=== PATIENT | female | born 1955 | race Caucasian/White ===

== ENCOUNTER → 2016-11-11 | Outpatient (CLI) | payer BC ==
--- NOTE | 2016-11-14 08:52 | MM ---
Reason for exam: screening (asymptomatic). Last mammogram was performed 2 years and 7 months ago. History: Patient is postmenopausal. Family history of breast cancer in aunt. Took estrogen for 2 months. Took unspecified hormones for 1 year 6 months beginning at age 49. Physical Findings: A clinical breast exam by your physician is recommended on an annual basis and results should be correlated with mammographic findings. MG Screening Mammo w CAD Bilateral CC and MLO view(s) were taken. Prior study comparison: April 10, 2014, bilateral MG screening mammo w CAD. April 01, 2013, bilateral digital screening mammo w/CAD. July 05, 2011, bilateral digital screening mammo w/CAD. There are scattered fibroglandular densities. No suspicious abnormality. No significant changes when compared with prior studies. ASSESSMENT: Benign, BI-RAD 2 RECOMMENDATION: Routine screening mammogram of both breasts in 1 year.
== END | disposition home or self-care (01) ==
LOC: RADMAMWWP 10:23
PROVIDERS: ATTEND Obstetrics & Gynecology
DX: Z12.31 Encounter for screening mammogram for malignant neoplasm of breast (principal); Z80.3 Family history of malignant neoplasm of breast

== ENCOUNTER → 2017-04-27 | Outpatient (CLI) | payer BC ==
--- NOTE | 2017-04-27 08:00 | MR ---
EXAMINATION TYPE: MR knee RT wo con DATE OF EXAM: 04/27/2017 COMPARISON: Outside right knee x-ray March 15, 2017. HISTORY: Right knee pain per order. History of prior knee surgery with recurrent inner knee pain per patient. TECHNIQUE: Multiplanar, multisequence images of the knee is performed without IV contrast. FINDINGS: MEDIAL MENISCUS: Anterior horn is intact without tear. Vague irregular increased signal posterior hor n of medial meniscus is present, some extension to articular surface inferiorly is felt present. Ther e is more prominent vertical tear seen best coronal image 20 and sagittal image 11. LATERAL MENISCUS: Horizontal increased signal posterior horn lateral meniscus is seen. There is more irregular increased signal anterior horn that appears to extend to articular surface sagittal image 2 2. CRUCIATE LIGAMENTS: The anterior and posterior cruciate ligaments are intact and unremarkable. COLLATERAL LIGAMENTS: The medial collateral ligament and lateral collateral ligament complex are inta ct. Mild fluid signal surrounds medial collateral ligament. EXTENSOR MECHANISM: Visualized quadriceps and patellar tendons are intact. EFFUSION: There is small suprapatellar joint effusion. POPLITEAL CYST: No popliteal/perry cyst. TRICOMPARTMENT SPACES: Advanced joint space loss patellofemoral compartment with moderate to severe s purring is seen. There is mild to moderate spurring lateral and medial tibiofemoral compartments. Jai e joint space narrowing tibial tibiofemoral compartment is present. CARTILAGE: Full-thickness chondromalacia patella is seen. BONE MARROW SIGNAL: Heterogeneous T2 foci posterior patellar pole are noted along the lateral facet. There is overall heterogeneity consistent with red marrow reconversion. There is additional subchondr al cystic change along posterior medial tibial plateau. OTHER: No additional significant abnormality is appreciated. IMPRESSION: 1. Full-thickness tear posterior horn of medial meniscus with prominent vertical component noted. 2. Suspect full-thickness tear anterior horn of lateral meniscus. 3. Intrasubstance tear posterior horn of lateral meniscus. 4. Mild MCL sprain. 5. Advanced patellofemoral compartment degenerative change with full-thickness chondromalacia patella identified. 5. Mild to moderate degenerative changes lateral and more prominent medial tibiofemoral compartments as detailed above.
== END | disposition home or self-care (01) ==
LOC: RADMRIMAIN 07:17
PROVIDERS: ATTEND Orthopaedic Surgery
DX: S83.241A Other tear of medial meniscus, current injury, right knee, initial encounter (principal); S83.281A Other tear of lateral meniscus, current injury, right knee, initial encounter; S83.411A Sprain of medial collateral ligament of right knee, initial encounter; M22.41 Chondromalacia patellae, right knee

== ENCOUNTER 2017-07-05 07:09 | Day surgery (SDC) | payer BC ==
[2017-06-29 15:04] VITALS: BMI 35.1
--- NOTE | 2017-07-04 13:26 | HP ---
HISTORY AND PHYSICAL Surgery is scheduled for 07/05/2017. Ewa Lang is a 62-year-old patient seen with progressive right knee pain. After treatment options were discussed, she elected to proceed with a right knee arthroscopy. Consent regarding procedure was obtained. Medical clearance was provided. PAST MEDICAL HISTORY: Hypothyroidism, hypertension, hyperlipidemia, npf-ehoiyng-lifmdfstc diabetes. PAST SURGICAL HISTORY: Shoulder arthroscopy, section. DAILY MEDICATIONS: 1. Hydrochlorothiazide. 2. Levothyroxine. 3. Losartan. 4. Metformin. 5. Omeprazole. 6. Atorvastatin. 7. Tylenol with codeine. ALLERGIES: PENICILLIN, MORPHINE. SOCIAL HISTORY: Patient denies current tobacco use. PHYSICAL EXAMINATION: Physical evaluation of the right knee: Range of motion is 0 to 120 degrees. Tenderness along the medial lateral joint lines. Positive medial Randy's. Positive lateral Randy's. Ligaments stable. Hip rotation without pain. Distal neurovascular exam is intact. Radiographs of the right knee reveal osteoarthritic changes. MRI of the right knee revealed medial lateral meniscal tears. IMPRESSION: Internal derangement right knee with medial and lateral meniscal tears. PLAN: Right knee arthroscopy with partial meniscectomy and debridement. MMODL / IJN: [id number] /
[~2017-07-05 07:09] MED LIST: DEXAMETHASONE SOD PHOSPHATE 10 MG/ML 1 ML VIAL IV ONE; LACTATED RINGERS 1,000 ML IV SCH; LIDOCAINE 1% 20 ML VIAL (10MG/ML) FOR IV START INTRADERMA PRN; ONDANSETRON 4 MG/2 ML VIAL IVP ONE; SCOPOLAMINE 1.5MG/72HR PATCH TRANSDERM ONE; ceFAZolin IN SWFI 2 GM/20 ML SYRINGE IVP ONE; fentaNYL (PF) 50 MCG/ML 2 ML AMP IV PRN
[2017-07-05 08:01] LABS: Glucose,Whole Blood 164 mg/dL (75-99)
[2017-07-05] MEDS ORDERED: PROPOFOL 10 MG/ML 20 ML VIAL IV ONE (08:29)
[2017-07-05] MEDS ORDERED: LIDOCAINE 1% INJ 10MG/ML (20 ML MDV) ONE (08:29)
[2017-07-05] MEDS ORDERED: DEXAMETHASONE SOD PHOS (MDV) 100 MG/10 ML VIAL ONE (08:29)
[2017-07-05] MEDS ORDERED: MIDAZOLAM 2 MG/2 ML VIAL ONE (08:29)
[2017-07-05] MEDS ORDERED: SUCCINYLCHOLINE CHLORIDE VIAL 200 MG/10 ML VIAL IV ONE (08:29)
[2017-07-05] MEDS ORDERED: fentaNYL (PF) 50 MCG/ML 2 ML AMP ONE (08:29)
[2017-07-05] MEDS ORDERED: BUPIVACAINE (PF) 0.25% 30 ML VIAL INTRAARTIC ONE ×2 (08:33→09:12)
[2017-07-05 09:30] VITALS: TEMP 98.3
--- NOTE | 2017-07-05 09:36 | P.OP ---
Date of Procedure: 07/05/17 Preoperative Diagnosis: Internal derangement right knee Postoperative Diagnosis: 1. Tear medial and lateral meniscus right knee 2. Grade 2/3 chondromalacia medial femoral condyle right knee 3. 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 Reactive synovitis medial and suprapatellar compartments right knee Procedure(s) Performed: 1. Arthroscopic partial medial and lateral meniscectomy right knee 2. Arthroscopic chondroplasty medial femoral condyle right knee 3. Arthroscopic chondroplasty patella right knee 4. Arthroscopic partial synovectomy medial and suprapatellar compartments right knee Anesthesia: DEANAA, local Surgeon: Nathan Vazquez Estimated Blood Loss (ml): 9 Pathology: none sent Condition: stable Disposition: PACU Indications for Procedure: 62-year-old patient seen with progressive right knee pain. After treatment options were discussed, she elected to proceed with arthroscopy. Operative Findings: See description of procedure Description of Procedure: Patient was taken to the operative suite. Patient underwent a general anesthetic by the department of anesthesia. Patient was given preoperative antibiotics. The right lower extremity was placed in a well-padded arthroscopic leg robison. The right leg was prepped and draped in the normal sterile orthopedic fashion. A lateral parapatellar and suprapatellar incision was made. Trochars were inserted. Arthroscopy was initiated. Suprapatellar pouch revealed diffuse thick reactive synovitis. The patellofemoral joint appeared to articulate congruently. There as grade 2/3 chondromalacia of the patella and femoral sulcus with some diffuse osteochondral tears present. The scope was guided into the medial gutter. No loose bodies or plica were identified. The scope was then guided into the medial compartment. A medial parapatellar incision was made. Trocar inserted followed by probe. There was a complex tear involving the posterior horn of the medial meniscus. There were grade 2/3 chondromalacia changes of the medial femoral condyle with osteochondral tears present. There was thick reactive synovitis anteriorly. I performed a partial medial meniscectomy down to stable tissue. I performed a chondroplasty of the medial femoral condyle down to stable tissue. I performed a partial synovectomy. The residual meniscus and osteochondral surface were found to be stable. Scope and probe were then guided into the intercondylar notch. Cruciates were identified, probed and found to be stable. The scope and probe were then guided into lateral compartment. There were radial tears involving the anterior and posterior horn lateral meniscus. There were some grade 1 chondromalacia changes lateral compartment with no osteochondral tears. There was no synovitis present. I performed a partial lateral meniscectomy down to stable tissue. The residual meniscus was stable. The scope was in guided back into the suprapatellar compartment. I introduced a motorized shaver into the super patellar compartment. I debrided some piecemeal fragments of meniscus I encountered. I performed a chondroplasty of the patella and femoral sulcus down to stable tissue. I performed a partial synovectomy. Shaver was removed. I took one more look on the entire knee, no residual debris. Instruments were now removed from the joint. The joint was infiltrated with .25% Marcaine. Steri-Strips were applied to the portal sites. Sterile dressings were applied. The patient was placed into a MATT hose. No tourniquet was utilized. The patient was awakened, transferred to a bed and taken to recovery stable satisfactory condition.
[2017-07-05 09:53] VITALS: RESP 16
[2017-07-05] MEDS ORDERED: KETOROLAC 30 MG/ML 1 ML VIAL IVP ONE (09:59)
[2017-07-05 10:08] LABS: Glucose,Whole Blood 195 mg/dL (75-99)
[2017-07-05] MEDS ORDERED: HYDROcodone/APAP 5-325MG 1 EACH TAB PO ONE (10:50)
[2017-07-05 11:30] VITALS: BP 135/88; PULSE 88
== END 2017-07-05 11:53 | disposition home or self-care (01) ==
LOC: OR 07:09
PROVIDERS: ATTEND Orthopaedic Surgery
DX: S83.241A Other tear of medial meniscus, current injury, right knee, initial encounter (principal); S83.281A Other tear of lateral meniscus, current injury, right knee, initial encounter; X58.XXXA Exposure to other specified factors, initial encounter; M22.41 Chondromalacia patellae, right knee; M65.861 Other synovitis and tenosynovitis, right lower leg; E03.9 Hypothyroidism, unspecified; K21.9 Gastro-esophageal reflux disease without esophagitis; I10 Essential (primary) hypertension; E78.5 Hyperlipidemia, unspecified; E11.9 Type 2 diabetes mellitus without complications; Z79.84 Long term (current) use of oral hypoglycemic drugs; Z79.890 Hormone replacement therapy; Z79.891 Long term (current) use of opiate analgesic; Z79.899 Other long term (current) drug therapy; Z88.5 Allergy status to narcotic agent; Z88.0 Allergy status to penicillin
CPT/HCPCS: 29880; J2250; J0330; J1100 ×2; J2405; J2001; J3010; J1885; J2704; J0690

== ENCOUNTER → 2018-04-19 | Outpatient (CLI) | payer BC ==
--- NOTE | 2018-04-20 10:47 | MM ---
Reason for exam: screening (asymptomatic). Last mammogram was performed 1 year and 5 months ago. History: Patient is postmenopausal. Family history of breast cancer in aunt. Took estrogen for 2 months. Took unspecified hormones for 1 year 6 months beginning at age 49. Physical Findings: A clinical breast exam by your physician is recommended on an annual basis and results should be correlated with mammographic findings. MG Screening Mammo w CAD Bilateral CC and MLO view(s) were taken. Prior study comparison: November 11, 2016, bilateral MG screening mammo w CAD. April 10, 2014, bilateral MG screening mammo w CAD. Finding #1: There is a 5 mm obscured round mass in the anterior position of the right breast. Finding #2: There are typically benign round calcifications in both breasts. New finding since November 11, 2016 and April 10, 2014. ASSESSMENT: Incomplete: need additional imaging evaluation, BI-RAD 0 RECOMMENDATION: Special view mammogram of the right breast. If lesion persists on supplemental views, image directed ultrasound is recommended. [facility] will attempt to contact patient to return for supplemental views and ultrasound if indicated.
== END | disposition home or self-care (01) ==
LOC: RADMAMWWP 14:59
PROVIDERS: ATTEND Obstetrics & Gynecology
DX: Z12.31 Encounter for screening mammogram for malignant neoplasm of breast (principal)
CPT/HCPCS: 77067

== ENCOUNTER → 2018-05-08 | Outpatient (CLI) | payer BC ==
--- NOTE | 2018-05-09 08:05 | MM ---
Reason for exam: additional evaluation requested from abnormal screening. Last mammogram was performed 1 month ago. History: Patient is postmenopausal. Family history of breast cancer in aunt. Took estrogen for 2 months. Took unspecified hormones for 1 year 6 months beginning at age 49. Physical Findings: Nurse did not find any significant physical abnormalities on exam. MG Work Up Mamm w CAD RT CC and MLO view(s) were taken of the right breast. Prior study comparison: April 19, 2018, bilateral MG screening mammo w CAD. November 11, 2016, bilateral MG screening mammo w CAD. There are scattered fibroglandular densities. Right upper outer quadrant anterior depth focal asymmetry improves on additional views however precautionary upper outer quadrant ultrasound will be performed. These results were verbally communicated with the patient and result sheet given to the patient on 05/08/18. ASSESSMENT: Incomplete: need additional imaging evaluation, BI-RAD 0 RECOMMENDATION: Ultrasound of the right breast. (upper outer quadrant)
--- NOTE | 2018-05-09 08:07 | USB ---
Reason for exam: additional evaluation requested from abnormal screening. History: Patient is postmenopausal. Family history of breast cancer in aunt. Took estrogen for 2 months. Took unspecified hormones for 1 year 6 months beginning at age 49. US Breast Workup Limited RT Right limited breast ultrasound including focal area of concern, retroareolar and axilla demonstrates a 0.3 x 0.3 x 0.3cm lesion too small to characterize at 10 o'clock, likely cystic. May correspond to the mammographic finding. 6 month follow up mammogram recommended. These results were verbally communicated with the patient and result sheet given to the patient on 05/08/18. ASSESSMENT: Probably benign, BI-RAD 3 RECOMMENDATION: Follow-up diagnostic mammogram of the right breast in 6 months.
== END | disposition home or self-care (01) ==
LOC: RADMAMWWP 14:54
PROVIDERS: ATTEND Obstetrics & Gynecology
DX: R92.8 Other abnormal and inconclusive findings on diagnostic imaging of breast (principal)
CPT/HCPCS: 77065

== ENCOUNTER → 2018-12-06 | Outpatient (CLI) | payer BC ==
--- NOTE | 2018-12-07 09:09 | MM ---
Reason for exam: follow-up at short interval from prior study. Last mammogram was performed 7 months ago. History: Patient is postmenopausal. Family history of breast cancer in aunt. Took estrogen for 2 months. Took unspecified hormones for 1 year 6 months beginning at age 49. Physical Findings: Nurse did not find any significant physical abnormalities on exam. MG Diagnostic Mammo RT w CAD CC and MLO view(s) were taken of the right breast. Prior study comparison: May 08, 2018, right breast MG work up mamm w CAD RT. April 19, 2018, bilateral MG screening mammo w CAD. No change in tiny nodule. No significant new findings when compared with previous films. These results were verbally communicated with the patient and result sheet given to the patient on 12/06/18. ASSESSMENT: Benign, BI-RAD 2 RECOMMENDATION: Follow-up diagnostic mammogram of both breasts in 6 months.
== END | disposition home or self-care (01) ==
LOC: RADMAMWWP 14:45
PROVIDERS: ATTEND Obstetrics & Gynecology
DX: R92.8 Other abnormal and inconclusive findings on diagnostic imaging of breast (principal)
CPT/HCPCS: 77065

== ENCOUNTER → 2020-04-30 | Outpatient (CLI) | payer BC ==
--- NOTE | 2020-05-01 09:30 | MM ---
Reason for exam: additional evaluation requested from prior study. Last mammogram was performed 1 year and 5 months ago. History: Patient is postmenopausal. Family history of breast cancer in aunt. Took estrogen for 2 months. Took unspecified hormones for 1 year 6 months beginning at age 49. Physical Findings: Nurse did not find any significant physical abnormalities on exam. MG Diagnostic Mammo w CAD NELY Bilateral CC and MLO view(s) were taken. Prior study comparison: December 06, 2018, right breast MG diagnostic mammo RT w CAD. May 08, 2018, right breast MG work up mamm w CAD RT. Focal asymmetry left subareolar breast. No significant new findings when compared with previous films. These results were verbally communicated with the patient and result sheet given to the patient on 04/30/20. ASSESSMENT: Benign, BI-RAD 2 RECOMMENDATION: Routine screening mammogram of both breasts in 1 year.
== END | disposition home or self-care (01) ==
LOC: RADMAMWWP 14:14
PROVIDERS: ATTEND Obstetrics & Gynecology
DX: R92.8 Other abnormal and inconclusive findings on diagnostic imaging of breast (principal)
CPT/HCPCS: 77066

== ENCOUNTER → 2020-12-03 | Outpatient (CLI) | payer BC | END | disposition home or self-care (01) | LOC: LABPAT 15:27 | PROVIDERS: ATTEND Orthopaedic Surgery | DX: Z01.812 Encounter for preprocedural laboratory examination (principal); M17.11 Unilateral primary osteoarthritis, right knee; Z22.322 Carrier or suspected carrier of Methicillin resistant Staphylococcus aureus | CPT/HCPCS: 87070 ==

== ENCOUNTER 2020-12-14 05:53 | Day surgery (SDC) | payer BC ==
[2020-12-09 12:31] VITALS: BMI 32.9
--- NOTE | 2020-12-13 10:52 | HP ---
HISTORY AND PHYSICAL REASON FOR ADMISSION: Surgery scheduled for 12/14/2020. HISTORY OF PRESENT ILLNESS: Ewa Lang is a 65-year-old patient seen with symptomatic right knee osteoarthritis. We discussed options for treatment. She elected to proceed with right total knee arthroplasty. Consent regarding the procedure was obtained. Medical clearance was provided by Dr. Vidal Medrano. PAST MEDICAL HISTORY: Hypertension, gkz-umvriqm-bjgjzejxu diabetes, hypothyroidism. PAST SURGICAL HISTORY: Shoulder surgery, section. MEDICATIONS: Hydrochlorothiazide, levothyroxine, losartan, metformin, omeprazole. ALLERGIES: PENICILLIN, MORPHINE. SOCIAL HISTORY: She denies tobacco use. PHYSICAL EVALUATION OF THE RIGHT KNEE: Range of motion is -2/3-90. Mild effusion. Tenderness medial joint line. Crepitus along the medial patellofemoral compartments with range of motion. Pain with patellofemoral compression. Ligaments stable. Hip rotation without pain. Distal neurovascular exam intact. RADIOGRAPHS: Right knee radiographs reveal severe osteoarthritic changes. IMPRESSION: 1. Right knee osteoarthritis. 2. Hypertension. 3. Hyperlipidemia. 4. Yea-bgdpmuo-cgbefoxnp diabetes. PLAN: Right total knee arthroplasty. Surgery 12/14/2020. MMODL / IJN: [id number] /
[~2020-12-14 05:53] MED LIST changes: +ACETAMINOPHEN TAB 500 MG TAB PO PRN; -DEXAMETHASONE SOD PHOSPHATE 10 MG/ML 1 ML VIAL IV ONE; -LACTATED RINGERS 1,000 ML IV SCH; -LIDOCAINE 1% 20 ML VIAL (10MG/ML) FOR IV START INTRADERMA PRN; +MELOXICAM 7.5 MG TAB PO PRN; -ONDANSETRON 4 MG/2 ML VIAL IVP ONE; +ROPIVACAINE/EPI/CLONIDINE/KET 50 ML SYRINGE MISCELLANE PRN; -SCOPOLAMINE 1.5MG/72HR PATCH TRANSDERM ONE; +TRANEXAMIC ACID 1,000 MG in SODIUM CHLORIDE 0.9% 100 ML IVPB PRN; -ceFAZolin IN SWFI 2 GM/20 ML SYRINGE IVP ONE; -fentaNYL (PF) 50 MCG/ML 2 ML AMP IV PRN
[2020-12-14] MEDS ORDERED: ONDANSETRON 4 MG/2 ML VIAL ONE (06:39)
[2020-12-14] MEDS ORDERED: LACTATED RINGERS 1,000 ML IV ONE ×2 (06:44→09:16)
[2020-12-14] MEDS ORDERED: LIDOCAINE 1% (10MG/ML) FOR IV START SQ ONE (06:44)
[2020-12-14 06:50] LABS: Glucose,Whole Blood 137 mg/dL (75-99)
[2020-12-14] MEDS ORDERED: ONDANSETRON 4 MG/2 ML VIAL IVP ONE ×3 (06:50→14:40)
[2020-12-14] MEDS ORDERED: DEXAMETHASONE SOD PHOSPHATE 4 MG/ML 1 ML VIAL IV ONE ×2 (06:50→06:54)
[2020-12-14] MEDS ORDERED: MIDAZOLAM 2 MG/2 ML VIAL IV PRN (06:54)
[2020-12-14] MEDS ORDERED: LIDOCAINE 1% (10MG/ML) FOR IV START INTRADERMA PRN (06:54)
[2020-12-14] MEDS ORDERED: SCOPOLAMINE 1.5MG/72HR PATCH TRANSDERM ONE (07:00)
[2020-12-14] MEDS ORDERED: fentaNYL (PF) 50 MCG/ML 2 ML AMP IV ONE ×2 (07:05→07:07)
[2020-12-14] MEDS ORDERED: MIDAZOLAM 2 MG/2 ML VIAL IV ONE ×2 (07:05→07:18)
--- NOTE | 2020-12-14 07:51 | P.ANPRN ---
Procedure Note - Anesthesia - Nerve Block Performed Right Waleck Single Time Out Performed: Yes Date of Procedure: 12/14/20 Procedure Start Time: : Procedure Stop Time: : Location of Patient: PreOp Indication: Acute Post-Operative Pain, Dx/Pain Location, Requested by Surgeon Specifically requested for management of pain by DrAttila: Nathan Vazquez Sedation Type: Sedate with meaningful contact maintained Preparation: Sterile Prep Position: Supine Catheter: None Needle Types: Happlink Needle Gauge: 21 Ultrasound used to visualize needle placement: Yes Ultrasound used to observe medication spread: Yes Injectate: 0.5% Ropivacaine (see comment for volume) Blood Aspirated: No Pain Paresthesia on Injection Noted: No Resistance on Injection: Normal Image Stored and Saved: Yes Events: Uneventful and Well Tolerated (0.5% ropivacaine 10cc)
--- NOTE | 2020-12-14 07:53 | P.ANPRN ---
Procedure Note - Anesthesia - Nerve Block Performed Right Adductor Canal Infusion Time Out Performed: Yes Date of Procedure: 12/14/20 Procedure Start Time: 07:04 Procedure Stop Time: 07:16 Location of Patient: PreOp Indication: Acute Post-Operative Pain, Dx/Pain Location, Requested by Surgeon Specifically requested for management of pain by : Nathan Vazquez Sedation Type: Sedate with meaningful contact maintained Preparation: Sterile Prep, Sterile Dressing Position: Supine Catheter Depth at Skin (cm): 6 Catheter: Indwelling Needle Types: Pajunk Needle Gauge: 21 Ultrasound used to visualize needle placement: Yes Ultrasound used to observe medication spread: Yes Injectate: 0.5% Ropivacaine (see comment for volume) Blood Aspirated: No Pain Paresthesia on Injection Noted: No Resistance on Injection: Normal Image Stored and Saved: Yes Events: Uneventful and Well Tolerated (0.5% ropivacaine 20cc)
[2020-12-14] MEDS ORDERED: ceFAZolin 1,000 MG in SODIUM CHLORIDE 0.9% 1,000 ML IRRIGATION ONE (08:05)
[2020-12-14] MEDS ORDERED: HYDROmorphone 0.2 MG/1 ML SYRINGE IVP PRN (09:16)
[2020-12-14] MEDS ORDERED: ONDANSETRON 4 MG/2 ML VIAL IVP PRN (09:16)
[2020-12-14] MEDS ORDERED: NALOXONE 0.4 MG/ML 1 ML VIAL IV PRN (09:16)
[2020-12-14] MEDS ORDERED: HYDROmorphone 0.5 MG/0.5 ML SYRINGE IVP PRN (09:16)
[2020-12-14] MEDS ORDERED: HYDROmorphone 1 MG/ML 1 ML SYRINGE IVP PRN (09:16)
[2020-12-14] MEDS ORDERED: Acetaminophen-Codeine 300-30mg TAB PO PRN (09:16)
--- NOTE | 2020-12-14 09:16 | P.OP ---
Date of Procedure: 12/14/20 Preoperative Diagnosis: Right knee osteoarthritis Postoperative Diagnosis: Right knee osteoarthritis Procedure(s) Performed: Right total knee arthroplasty Implants: 1. Depuy attune size 5 narrow right cruciate retaining cemented femur 2. Depuy attune size 4 fixed bearing cemented tibial baseplate 3. Depuy attune size 5 fixed bearing cruciate retaining 5 mm polyethylene tibial insert 4. Depuy attune 35 mm all polyethylene cemented patella Anesthesia: GETA, regional (Adductor canal catheter, Ipack block) Surgeon: Nathan Vazquez Shuttle Fixer #1: Segundo Quiroga Estimated Blood Loss (ml): 45 Pathology: other (Bone) Condition: stable Disposition: PACU Indications for Procedure: 65-year-old patient seen with symptomatic right knee osteoarthritis. After treatment options were discussed, she elected to proceed with total knee Operative Findings: see description of procedure Description of Procedure: Patient was taken to the operative suite after having an adductor canal catheter placed by the department of anesthesia as well as and Ipack block for postoperative pain management. Patient underwent a general anesthetic by the department of anesthesia. Patient was given preoperative IV intake antibiotics and TXA. A well-padded tourniquet was placed about the right lower extremity. The lower extremity was then prepped and draped in the normal sterile orthopedic fashion. The extremity was elevated, a tourniquet was insufflated to 300. A standard anterior incision was made sharply through skin. Dissection was taken down through the subcutaneous soft tissues down to the extensor mechanism. A medial arthrotomy was performed, patella was everted and knee was flexed. There was advanced osteoarthritis noted. I introduced my distal intramedullary fem oral drill. I then introduced the distal femoral cutting jig. Solomon CORDOBA secured the cutting jig with 2 pins. I held retractors in position while Solomon CORDOBA performed the distal femoral resection through the guide area we now removed her distal femoral cutting guide. We now placed our 4-in-1 femoral cutting block and positioned and it was secured with 2 pins by Solomon CORDOBA while I held the block in position. The distal femoral finishing was now completed. A proximal tibial cutting guide was positioned. I held the guide in the appropriate position with both hands well Solomon CORDOBA inserted stabilizing pins into the guide. Proximal tibial cut was made. We now placed a trial femoral component into position, along with an appropriate size tibial tray and insert. We now took the knee through range of motion and had full extension good flexion and good overall soft tissue balance noted. The patella was everted and stabilized with 2 towel clips held by Solomon CORDOBA while I performed a flush with patellar quad tendon utilizing a fresh sawblade. We templated the patella, appropriate drill holes were made. An appropriate trial patella was positioned, knee was taken through full range of motion with the patella tracking very nicely. The trial patella was removed. Drill holes were made through the femoral component. All trial components were removed after marking off the appropriate rotation of the tibia. Retractors were now positioned along the proximal tibia. An appropriate keel punch was made with the appropriate size tibial guide by myself on Solomon CORDOBA assisted by holding retractors. At this point appropriate size implants were chosen and opened. The joint was irrigated copiously with pulse lavage mechanical irrigation. The posterior capsule was infiltrated with local analgesic. The wound was irrigated with pulse lavage mechanical irrigation. We mixed antibiotic methylmethacrylate. We placed the knee into flexion. We placed multiple retractors assisted by Solomon CORDOBA to expose the proximal tibia. Once the methyl methacrylate was ready, the tibial component was cemented into place removing any excess methylmethacrylate form by both myself and Solomon CORDOBA. The femoral component was cemented into place removing the removing any excess methylmethacrylate performed by both myself and Solomon CORDOBA. We then inserted the appropriate size polyethylene tibial insert. We made sure that it was locked into position. We took the knee into full extension, and then back in a flexion making sure we had removed any excess methylmethacrylate. The patellar component was then cemented down and secured with clamp. Excess methylmethacrylate removed. We kept the knee in full extension, patellar clamp in position until methylmethacrylate had hardened. Once it had hardened the patellar clamp was removed. The knee was taken through full range of motion. The patella tracked nicely. There was good soft tissue balancing. The tourniquet was now released. Additional hemostasis was achieved via electrocautery. A second gram of TXA was given. The wound again was irrigated with pulse lavage mechanical irrigation. The extensor mechanism was repaired with Ethibond. We checked the repair with range of motion and it was stable. The subcutaneous soft tissues were repaired with Vicryl in layers. The skin was approximated with pernio/Dermabond. Sterile dressings were applied followed by loose web roll and Ash bandage. The patient was transferred to a bed, and taken to recovery in stable and satisfactory condition. Solomon CORDOBA assisted with this complex procedure.
[2020-12-14] MEDS ORDERED: ROPIVACAINE 0.2%-NS ON-Q PUMP 1,090 MG, EMPTY PAIN BALL 1 EACH MISCELLANE PRN (09:36)
[2020-12-14] MEDS: HYDROmorphone 0.5 MG/0.5 ML SYRINGE IVP PRN ×3 (09:44→10:06)
[2020-12-14] MEDS ORDERED: KETOROLAC 15 MG/ML 1 ML VIAL ONE (09:56)
[2020-12-14 10:05] LABS: Glucose,Whole Blood 180 mg/dL (75-99)
[2020-12-14] MEDS: LACTATED RINGERS 1,000 ML IV SCH ×2 (10:12→14:47)
[2020-12-14] MEDS ORDERED: METOPROLOL SUCCINATE (ER) 50 MG TAB.ER.24H PO STA (10:17)
[2020-12-14] MEDS ORDERED: LOSARTAN 50 MG TAB PO STA (10:18)
--- NOTE | 2020-12-14 10:28 | XR ---
Limited right knee HISTORY: Status post right knee arthroplasty 2 views of the right knee Region is status post right knee arthroplasty. There is anatomic alignment. Lucencies present in the soft tissues. IMPRESSION: Orthopedic follow-up.
[2020-12-14] MEDS ORDERED: hydrALAZINE HCL 20 MG/ML 1 ML VIAL ONE (12:55)
[2020-12-14] MEDS: Acetaminophen-Codeine 300-30mg TAB PO PRN ×3 (12:57→21:08)
[2020-12-14] MEDS ORDERED: hydrALAZINE HCL 20 MG/ML 1 ML VIAL IVP ONE (12:57)
[2020-12-14 16:30] LABS: Glucose,Whole Blood 183 mg/dL (75-99)
[2020-12-14 20:59] LABS: Glucose,Whole Blood 145 mg/dL (75-99)
[2020-12-14] MEDS: metFORMIN 500 MG TAB PO SCH (22:01)
[2020-12-15] MEDS: Acetaminophen-Codeine 300-30mg TAB PO PRN ×3 (01:59→11:36)
[2020-12-15] MEDS ORDERED: diphenhydrAMINE 25 MG CAP PO PRN (02:26)
[2020-12-15] MEDS ORDERED: LEVOTHYROXINE 125 MCG TAB PO SCH (06:30)
[2020-12-15 06:40] LABS: Glucose,Whole Blood 116 mg/dL (75-99)
[2020-12-15 07:15] VITALS: BP 173/65; PULSE 89; RESP 17; TEMP 98.8
[2020-12-15] MEDS ORDERED: PANTOPRAZOLE 40 MG TABLET PO SCH (07:30)
[2020-12-15] MEDS ORDERED: CYCLOBENZAPRINE 10 MG TAB PO PRN (07:34)
--- NOTE | 2020-12-15 07:52 | P.PN ---
Progress Note - Text Progress Note Date: 12/15/20 Patient seen and examined this morning POD 1 for total knee arthroplasty. Patient received general anesthesia and an adductor canal catheter for post operative pain management. She has planned to go home after surgery, however her blood pressure was elevated and she was fatigued from anesthesia. Patient is doing well today without significant discomfort. Patient pain is a 5/10 and well controlled. She reports her pain behind he knee joint. She denies a headache, chest pain, SOB, fever/chills, nausea/vomiting. Vital signs stable. Continue infusion of catheter for pain management.
[2020-12-15] MEDS: metFORMIN 500 MG TAB PO SCH (08:22)
[2020-12-15] MEDS ORDERED: METOPROLOL SUCCINATE (ER) 25 MG TAB.ER.24H PO SCH (09:00)
[2020-12-15] MEDS ORDERED: CHOLECALCIFEROL 25 MCG (1000 IU) TABLET PO SCH (09:00)
[2020-12-15] MEDS ORDERED: NON FORMULARY DRUG (Cannabidiol (Cbd) [Epidiolex] 100 MG/ML Ml) PO SCH (09:00)
[2020-12-15] MEDS ORDERED: LOSARTAN 50 MG TAB PO SCH (09:00)
[2020-12-15] MEDS ORDERED: NON FORMULARY DRUG (Ubidecarenone [Co Q-10] 100 MG Capsule) PO SCH (09:00)
[2020-12-15] MEDS ORDERED: ENOXAPARIN 30 MG/0.3 ML SYRINGE SQ SCH (09:00)
[2020-12-15] MEDS ORDERED: NON FORMULARY DRUG (Omega-3 Fatty Acids [Omega-3] 1,000 MG Capsule) PO SCH (09:00)
[2020-12-15] MEDS ORDERED: hydroCHLOROthiazide 25 MG TAB PO SCH (09:00)
[2020-12-15] MEDS ORDERED: traMADol 50 MG TAB PO SCH (09:00)
[2020-12-15] MEDS ORDERED: ZINC SULFATE 220 MG CAP PO SCH (09:00)
[2020-12-15] MEDS ORDERED: PREGABALIN 75 MG CAP PO STA (10:31)
--- NOTE | 2020-12-15 10:34 | P.PN ---
Subjective Progress Note Date: 12/15/20 Principal diagnosis: Status post right total knee arthroplasty Patient evaluated at bedside today, she is resting comfortably. She is feeling better today. Nausea is much improved. She was able to ambulate with physical therapy. She denies any headaches, lightheadedness, chest pain shortness of breath at this time Objective - Vital Signs Vital signs: Vital Signs Temp 98.8 F 12/15/20 07:13 Pulse 89 12/15/20 07:13 Resp 17 12/15/20 07:13 BP 173/65 12/15/20 07:13 Pulse Ox 96 12/15/20 07:13 Intake & Output 12/14/20 12/15/20 12/15/20 18:59 06:59 18:59 Intake Total 2025 Output Total 45 Balance 1981 Weight 88.9 kg Intake: IV 2025 Output: Estimated Blood Loss 45 Other: Voiding Method Toilet # Voids 1 - Exam Right lower extremity: Incision is clean, dry, and intact. The foam dressing is in good condition. There is minimal soft tissue swelling and ecchymosis surrounding the medial and lateral aspects of the incision. Calf is soft, no tenderness with palpation. Plantar flexion, dorsiflexion, EHL, FHL are intact. Sensory exam to light touch throughout the extremity is intact, dorsal pedis pulses 2+. - Labs Labs: Abnormal Lab Results - Last 24 Hours (Table) 12/14/20 12/14/20 12/15/20 Range/Units 16:26 20:57 06:38 POC Glucose (mg/dL) 183 H 145 H 116 H (75-99) mg/dL Assessment and Plan Assessment: Postoperative day #1 status post right total knee arthroplasty Plan: Pain control, plan for discharge home on Tylenol 3, we'll also utilize Lyrica 75 mg DVT prophylaxis, aspirin 81 mg twice a day for 30 days Wound care instructions were discussed, this to include bandage changes Encourage incentive spirometer Home health care for discharge Icing and elevating techniques discussed Medical recommendations Plan for discharge home today Time with Patient: Less than 30
--- NOTE | 2020-12-15 10:39 | P.DS ---
Providers Date of admission: 12/14/2020 Expected date of discharge: 12/15/20 Attending physician: Nathan Vazquez Consults: 12/14/20 21:21 Consult Physician Routine Consulting Provider: Lei Lees Consult Reason/Comments: Medical Management s/p right total knee arthroplasty Do you want consulting provider notified?: Yes Primary care physician: Billy Ribeiro Hospital Course: Date of admission: 12/14/2020 Date of discharge: 12/15/2020 Admission diagnosis: Status post right total knee arthroplasty Discharge diagnosis: Same Attending physician: Dr. Vazquez Surgical procedures: Right total knee arthroplasty Brief history: Patient is a 65-year-old female with a history of progressive primary right knee osteoarthritis. At this point patient has failed conserva tive treatment measures and has opted to proceed with a elective right total knee arthroplasty. Hospital course: Details of patient's surgery can be found in operative report. Patient tolerated the procedure well and was subsequently transported to orthopedic floor. Patient's orthopeidc and medical care was provided daily. Patient had daily laboratory tests performed for evaluation of overall blood counts. Patient had daily physical therapy to include strengthening range of motion as well as education with walker ambulation. Patient was treated with Lovenox for their postoperative DVT prophylaxis during their inpatient stay. Patient was noted to have a relatively uneventful postoperative course. Patient reported satisfactory pain control with oral pain medications by postoperative day 0. Patient showed satisfactory progress with physical therapy. Patient moved steadily through the program and had no difficulty meeting the goals by postoperative day 1. Given patient's otherwise satisfactory course and having met physical therapy goals, plan is to discharge patient home on postoperative day 1. Discharge condition/disposition: Patient will be discharged home in stable condition. Discharge medications: Instructions are given on resumption of patient's normal daily medications per primary care recommendation, in addition patient will be prescribed Tylenol 3, Lyrica 75 mg, Colace 100 mg, aspirin 81 mg. Discharge instructions: 1. Wound care and infection precautions, keep incision dry and covered while showering, no lotions, creams, moisturizers. No soaking, tubs, pools, hottubs. Do not scrub over the incision. 2. Weight-bear as tolerated with walker / cane until follow-up. 3. Ice and elevate when necessary. Do not exceed 20 minutes per hour with ice pack. 4. Utilize compression sleeve until seen at first follow up appointment. 5. Visiting nursing care. 6. Home physical therapy including home CPM. 7. Pain meds and anticoagulants per prescription. 8. Pain medication has potential to cause constipation. Increase oral fluid and fiber intake. Contact primary care provider if you have not had a bowel movement within 48 hours after discharge 9. No anti-inflammatory medication until discussed at first post operative visit, this including Motrin, Aleve, Mobic, Diclofenac. 10. Follow up in office at 2 weeks postop with Solomon Quiroga PA-C/Cuate Tena 11. Follow up with your primary care doctor 7-10 days after discharge. 12. Contact [facility] with any questions, . Procedures: Right total knee arthroplasty Patient Condition at Discharge: Good Plan - Discharge Summary Discharge Rx Participant: Yes New Discharge Prescriptions: New Aspirin [Adult Low Dose Aspirin EC] 81 mg PO BID #60 tab Pregabalin [Lyrica] 75 mg PO BID 14 Days #21 cap Docusate [Colace] 100 mg PO DAILY #30 cap Acetaminophen-Codeine 300-30mg [Tylenol w/codeine #3] 1 - 2 tab PO Q6HR PRN #42 tablet PRN Reason: Pain No Action Omeprazole [PriLOSEC] 20 mg PO AC-BRKFST metFORMIN HCL [Glucophage] 500 mg PO TID Losartan Potassium [Cozaar] 100 mg PO QAM hydroCHLOROthiazide [Hydrodiuril] 25 mg PO DAILY Metoprolol Succinate (ER) [Toprol Xl] 50 mg PO QAM Levothyroxine Sodium [Synthroid] 125 mcg PO DAILY Cholecalciferol (Vitamin D3) [Vitamin D3] 10,000 unit PO DAILY Zinc 50 mg PO DAILY Ubidecarenone [Co Q-10] 100 mg PO DAILY Elko-3 Fatty Acids [Elko-3] 1,000 mg PO DAILY Cannabidiol (Cbd) [Epidiolex] 750 mg PO DAILY Discharge Medication List Cholecalciferol (Vitamin D3) [Vitamin D3] 10,000 unit PO DAILY 06/29/17 [History] Levothyroxine Sodium [Synthroid] 125 mcg PO DAILY 06/29/17 [History] Losartan Potassium [Cozaar] 100 mg PO QAM 06/29/17 [History] Metoprolol Succinate (ER) [Toprol Xl] 50 mg PO QAM 06/29/17 [History] Omeprazole [PriLOSEC] 20 mg PO AC-BRKFST 06/29/17 [History] hydroCHLOROthiazide [Hydrodiuril] 25 mg PO DAILY 06/29/17 [History] metFORMIN HCL [Glucophage] 500 mg PO TID 06/29/17 [History] Cannabidiol (Cbd) [Epidiolex] 750 mg PO DAILY 12/09/20 [History] [place]ko-3 Fatty Acids [Elko-3] 1,000 mg PO DAILY 12/09/20 [History] Ubidecarenone [Co Q-10] 100 mg PO DAILY 12/09/20 [History] Zinc 50 mg PO DAILY 12/09/20 [History] Acetaminophen-Codeine 300-30mg [Tylenol w/codeine #3] 1 - 2 tab PO Q6HR PRN #42 tablet 12/15/20 [Rx] Aspirin [Adult Low Dose Aspirin EC] 81 mg PO BID #60 tab 12/15/20 [Rx] Docusate [Colace] 100 mg PO DAILY #30 cap 12/15/20 [Rx] Pregabalin [Lyrica] 75 mg PO BID 14 Days #21 cap 12/15/20 [Rx] Follow up Appointment(s)/Referral(s): Billy Ribeiro MD [Primary Care Provider] - 1 Week Segundo Quiroga PAC [PHYSICIAN SPECIFICATION WRITER] - 12/30/20 2:10 pm Patient Instructions/Handouts: *[facility] - On-Q Pain Pump Discharge Instructions, *[facility] - Scopalamine Patch Instructions, How to Use an Incentive Spirometer (DC) Activity/Diet/Wound Care/Special Instructions: Orthopedic Discharge Instructions: 1. Wound care and infection precautions, keep incision dry and covered while showering, no lotions, creams, moisturizers. No soaking, pools, hot tubs. Do not scrub over incision. 2. Weight-bear as tolerated with walker / cane until follow-up. 3. Ice and elevate when necessary. Do not exceed 20 minutes per hour with ice pack. 4. Utilize compression sleeve until seen at first follow up appointment. 5. Pain meds and anticoagulants per prescription. 6. Pain medication has potential to cause constipation. Increase oral fluid and fiber intake. Contact primary care provider if you have not had a bowel movement within 48 hours after discharge. 7. No anti-inflammatory medication until discussed at first post operative visit, this including Motrin, Aleve, Mobic, Diclofenac. 8. Follow up in office at 2 weeks postop with Solomon Quiroga PA-C/Cuate Jhaveri PA-C 9. Follow up with your primary care doctor 7-10 days after discharge. 10. Contact [facility] with any questions, . Discharge Disposition: HOME WITH HOME HEALTH SERVICES
[2020-12-15 10:59] LABS: Glucose,Whole Blood 180 mg/dL (75-99)
[2020-12-15] MEDS ORDERED: METOPROLOL SUCCINATE (ER) 50 MG TAB.ER.24H PO STA (11:41)
[2020-12-15] MEDS ORDERED: LOSARTAN 50 MG TAB PO STA (11:43)
--- NOTE | 2020-12-15 18:17 | P.CONS ---
History of Present Illness - Reason for Consult Consult date: 12/15/20 Medical management Requesting physician: Nathan Vazquez - Chief Complaint Right knee surgery - History of Present Illness This is a very pleasant 65-year-old patient who follows with Dr. Billy Ribeiro. Chronic stable medical conditions includes diabetes, GERD, hypertension, osteoarthritis of the joints, hypothyroid. Patient is undergoing right total knee arthroplasty. Having some pain at the operative site. No nausea vomiting. No dizziness. Did work with physical therapy this morning. Did eat some breakfast. No chest pain no shortness of breath. Denies any cardiac history. Review of systems: GEN.: None EYES: None HEENT: None NECK: None RESPIRATORY: None CARDIOVASCULAR: None GASTROINTESTINAL: None GENITOURINARY: None MUSCULOSKELETAL: Joint pains LYMPHATICS: None HEMATOLOGICAL: None PSYCHIATRY: None NEUROLOGICAL: None Past medical history to include: Diabetes, GERD, hypertension, osteoarthritis, hypothyroid, Social history: lives with her . Does not smoke. Alcohol occasionally. 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 Family history: Testicle cancer Physical examination: VITAL SIGNS: 98.8, 89, 17, 1 73 x 65, 96% room air GENERAL: BMI 33.6, sitting up in bed, awake, comfortable. EYES: Pupils equal. Conjunctiva normal. HEENT: External appearance of nose and ears normal, oral cavity grossly normal. NECK: JVD not raised; masses not palpable. HEART: First and second heart sounds are normal; no edema. LUNGS: Respiratory rate normal; clear to auscultation. ABDOMEN: Soft, nontender, liver spleen not palpable, no masses palpable. PSYCH: Alert and oriented x3; mood and affect normal. MUSCULAR skeletal: Dressing over the right knee. Evidence of OA NEUROLOGICAL: Cranial nerves grossly intact; no facial asymmetry, power and sensation grossly intact. LYMPHATICS: No lymph nodes palpable in the axilla and neck INVESTIGATIONS, reviewed in the clinical context: Accu-Cheks noted Assessment and plan: -Right total knee arthroplasty Patient on Percocet for pain control and aspirin for DVT prophylaxis per Dr. Mcmahan. -Diabetes mellitus type 2 on oral hypoglycemic Follow Accu-Cheks resume Glucophage 500 mg twice a day -GERD Prilosec 20 mg daily -Essential hypertension Patient's home medications and resume this morning including Cozaar 100 mg daily and Toprol-XL 50 mg daily. Patient advised to recheck her blood pressure every morning upon discharge -Primary osteoarthritis Use Tylenol as needed -Hypothyroid Synthroid 125 g daily -Obesity BMI 33.6 Weight loss measures and follow with PCP Care was discussed with the patient. Home blood pressure medications other medications to be resumed. Told to check her blood pressure daily at home. Follow-up with the PCP. Questions answered Thank you Dr. Mcmahan Past Medical History Past Medical History: Diabetes Mellitus, GERD/Reflux, Hypertension, Osteoarthritis (OA), Thyroid Disorder Additional Past Medical History / Comment(s): torn meniscus rt knee,"prediabetic",steroid injection 06-27-17,steroid dose pack June History of Any Multi-Drug Resistant Organisms: None Reported Past Surgical History: Section, Orthopedic Surgery Additional Past Surgical History / Comment(s): x2,spur removed from foot,lt rot cuff repair,D&C x 2,rt knee arthroscopy x2 Past Anesthesia/Blood Transfusion Reactions: Previous Problems w/ Anesthesia, Postoperative Nausea & Vomiting (PONV) Past Psychological History: No Psychological Hx Reported Smoking Status: Former smoker Past Alcohol Use History: Occasional Additional Past Alcohol Use History / Comment(s): smoked for a year as a teen Past Drug Use History: None Reported - Past Family History Mother Family Medical History: No Reported History Brother(s) Family Medical History: Cancer Additional Family Medical History / Comment(s): testicular CA Medications and Allergies Home Medications Medication Instructions Recorded Confirmed Type Cholecalciferol (Vitamin D3) 10,000 unit PO DAILY 06/29/17 12/14/20 History [Vitamin D3] Levothyroxine Sodium [Synthroid] 125 mcg PO DAILY 06/29/17 12/14/20 History Losartan Potassium [Cozaar] 100 mg PO QAM 06/29/17 12/14/20 History Metoprolol Succinate (ER) [Toprol 50 mg PO QAM 06/29/17 12/14/20 History XL] Omeprazole [PriLOSEC] 20 mg PO AC-BRKFST 06/29/17 12/14/20 History hydroCHLOROthiazide [Hydrodiuril] 25 mg PO DAILY 06/29/17 12/14/20 History metFORMIN HCL [Glucophage] 500 mg PO TID 06/29/17 12/14/20 History Cannabidiol (Cbd) [Epidiolex] 750 mg PO DAILY 12/09/20 12/14/20 History [place]-3 Fatty Acids [[place]-3] 1,000 mg PO DAILY 12/09/20 12/09/20 History Ubidecarenone [Co Q-10] 100 mg PO DAILY 12/09/20 12/09/20 History Acetaminophen-Codeine 300-30mg 1 - 2 tab PO Q6HR PRN #42 tablet 12/15/20 Rx [Tylenol w/codeine #3] Aspirin [Adult Low Dose Aspirin EC] 81 mg PO BID #60 tab 12/15/20 Rx Docusate [Colace] 100 mg PO DAILY #30 cap 12/15/20 Rx Pregabalin [Lyrica] 75 mg PO BID 14 Days #21 cap 12/15/20 Rx Allergies Allergy/AdvReac Type Severity Reaction Status Date / Time morphine Allergy Rash/Hives Verified 12/09/20 12:00 Penicillins Allergy Rash/Hives Verified 12/09/20 12:00 Physical Exam Vitals: Vital Signs Temp Pulse Pulse Resp BP Pulse Ox 12/15/20 07:13 98.8 F 89 17 173/65 96 12/15/20 01:28 98.4 F 92 16 133/75 92 L 12/14/20 19:32 98.5 F 85 15 130/73 96 12/14/20 19:27 16 12/14/20 18:07 98.2 F 99 18 169/83 97 12/14/20 17:25 92 16 141/75 97 12/14/20 16:25 96 16 138/79 98 12/14/20 15:25 98 16 133/80 12/14/20 14:22 100 16 151/85 100 12/14/20 13:52 95 16 164/91 100 12/14/20 13:19 94 16 160/84 99 12/14/20 13:04 92 16 171/91 98 12/14/20 12:45 90 16 177/100 98 12/14/20 12:15 92 16 176/95 98 12/14/20 11:43 90 16 178/97 98 12/14/20 11:29 92 16 164/92 98 12/14/20 11:13 86 16 180/92 97 12/14/20 10:57 86 16 180/95 98 12/14/20 10:41 97.6 F 86 16 180/92 97 12/14/20 10:34 86 16 166/78 91 L 12/14/20 10:15 89 16 172/81 99 Intake and Output 12/14/20 12/15/20 12/15/20 22:59 06:59 14:59 Other: Voiding Method Toilet # Voids 1 Weight 88.9 kg Results Labs: Abnormal Lab Results - Last 24 Hours (Table) 12/14/20 12/14/20 12/14/20 Range/Units 10:03 16:26 20:57 POC Glucose (mg/dL) 180 H 183 H 145 H (75-99) mg/dL 12/15/20 Range/Units 06:38 POC Glucose (mg/dL) 116 H (75-99) mg/dL
== END 2020-12-15 14:59 | disposition home health service (06) ==
LOC: OR 05:53 → 4SSUR 09:28 → OR 12-15 14:59
PROVIDERS: ATTEND Orthopaedic Surgery
DX: M17.11 Unilateral primary osteoarthritis, right knee (principal); E03.9 Hypothyroidism, unspecified; E11.9 Type 2 diabetes mellitus without complications; E78.5 Hyperlipidemia, unspecified; I10 Essential (primary) hypertension; K21.9 Gastro-esophageal reflux disease without esophagitis; E66.9 Obesity, unspecified; Z68.33 Body mass index [BMI] 33.0-33.9, adult; Z79.82 Long term (current) use of aspirin; Z79.84 Long term (current) use of oral hypoglycemic drugs; Z79.899 Other long term (current) drug therapy; Z87.891 Personal history of nicotine dependence; Z88.0 Allergy status to penicillin; Z88.5 Allergy status to narcotic agent
CPT/HCPCS: 27447; 97116; 97110; 97161; 64999; 64448; 76942; 88300; 73560; C1776; C1713 ×2; J2250; J0360; J1100; J0690 ×2; J2405; J3010; J1650; J1170 ×2; J1885; J2795

== ENCOUNTER 2021-05-03 08:34 | Day surgery (SDC) | payer BC ==
[2021-04-29 11:32] VITALS: BMI 31.6
--- NOTE | 2021-05-02 11:52 | HP ---
HISTORY AND PHYSICAL DATE OF SURGERY: 05/03/2021 Ewa Lang is a 66-year-old patient seen with right knee adhesions with history of total knee arthroplasty. Options were discussed. She elected to proceed with manipulation under anesthesia of right knee. Consent was obtained. PAST MEDICAL HISTORY: Hypothyroidism, hypertension, npl-[id number]-ywihhflle diabetes. PAST SURGICAL HISTORY: Shoulder arthroscopy, section, right total knee arthroplasty. DAILY MEDICATIONS: Hydrochlorothiazide, levothyroxine, losartan, metformin. ALLERGIES: PENICILLIN, MORPHINE. SOCIAL HISTORY: She denies tobacco use. PHYSICAL EVALUATION OF THE RIGHT KNEE: Her anterior incision is well healed. Her range of motion is negative 3 to 90 degrees. Ligaments are stable. Distal neurovascular exam is intact. Radiographs of the right knee revealed a stable-appearing total knee arthroplasty. IMPRESSION: 1. Right knee adhesions. 2. History of right total knee arthroplasty. 3. Hypertension. 4. Hypothyroidism. 5. [id number] diabetes. PLAN: Manipulation under anesthesia of right knee. MMODL / IJN: [id number] /
[~2021-05-03 08:34] MED LIST changes: -ACETAMINOPHEN TAB 500 MG TAB PO PRN; +DEXAMETHASONE SOD PHOSPHATE 4 MG/ML 1 ML VIAL IV ONE; +LACTATED RINGERS 1,000 ML IV SCH; -MELOXICAM 7.5 MG TAB PO PRN; +MIDAZOLAM 2 MG/2 ML VIAL IV PRN; +ONDANSETRON 4 MG/2 ML VIAL IVP ONE; -ROPIVACAINE/EPI/CLONIDINE/KET 50 ML SYRINGE MISCELLANE PRN; +SCOPOLAMINE 1.5MG/72HR PATCH TRANSDERM ONE; -TRANEXAMIC ACID 1,000 MG in SODIUM CHLORIDE 0.9% 100 ML IVPB PRN; +fentaNYL (PF) 50 MCG/ML 2 ML AMP IV PRN
[2021-05-03 09:34] LABS: Glucose,Whole Blood 127 mg/dL (75-99)
[2021-05-03] MEDS ORDERED: PROPOFOL 10 MG/ML 20 ML VIAL IV ONE (09:38)
[2021-05-03] MEDS ORDERED: KETOROLAC 15 MG/ML 1 ML VIAL ONE (09:38)
[2021-05-03] MEDS ORDERED: MIDAZOLAM 2 MG/2 ML VIAL ONE (09:38)
[2021-05-03] MEDS ORDERED: HYDROmorphone (PF) 1 MG/ML ONE (09:38)
[2021-05-03] MEDS ORDERED: fentaNYL (PF) 50 MCG/ML 2 ML AMP ONE (09:38)
--- NOTE | 2021-05-03 09:51 | P.OP ---
Date of Procedure: 05/03/21 Preoperative Diagnosis: Right knee adhesions Postoperative Diagnosis: Right knee adhesions Procedure(s) Performed: Manipulation under anesthesia right knee Anesthesia: MAC Surgeon: Nathan Vazquez Estimated Blood Loss (ml): 0 Pathology: none sent Condition: stable Disposition: PACU Indications for Procedure: 66-year-old patient seen with persistent right knee adhesions with history of previous right total knee arthroplasty. I discussed manipulation under anesthesia right knee. Patient was agreeable. Consent was obtained. Operative Findings: See description of procedure Description of Procedure: Patient was taken to a monitored anesthesia area. She underwent IV sedation by the department of anesthesia. Once sufficient anesthesia was noted I performed a manipulation of the right knee achieving near full extension and 140 of flexion with audible tearing of the adhesions. The patient. Taut procedure well. She was awakened and taken to recovery in stable condition. She will be discharged once stable and initiate physical therapy.
[2021-05-03 10:07] VITALS: TEMP 98.7
[2021-05-03] MEDS ORDERED: HYDROmorphone 0.5 MG/0.5 ML SYRINGE IVP ONE (10:12)
[2021-05-03] MEDS ORDERED: diphenhydrAMINE 50 MG/ML 1 ML VIAL IVP ONE (10:18)
[2021-05-03 11:32] VITALS: BP 156/93; PULSE 71; RESP 16
== END 2021-05-03 11:35 | disposition home or self-care (01) ==
LOC: OR 08:34
PROVIDERS: ATTEND Orthopaedic Surgery
DX: K66.0 Peritoneal adhesions (postprocedural) (postinfection) (principal)
CPT/HCPCS: 27570; J2250; J1200; J3010; J1170 ×2; J1885; J2704

== ENCOUNTER → 2021-09-01 | Outpatient (CLI) | payer BC ==
--- NOTE | 2021-09-02 16:36 | BD ---
EXAMINATION TYPE: Axial Bone Density DATE OF EXAM: 09/01/2021 COMPARISON: NONE CLINICAL HISTORY: 66 years year old Female. ICD-10 CODE: Z13.820 SCREEN FOR OSTEOPOROSIS Height: 64 Weight: 198.7 FRAX RISK QUESTIONS: Alcohol (3 or more units per day): NO Family History (Parent hip fracture): NO Glucocorticoids (More than 3mos): NO History of Fracture in Adulthood: LT FOOT AGE 36 Secondary Osteoporosis: 1. Type 1 Diabetes: NO 2. Hyperthyroidism: NO 3. Menopause before 45: NO 4. Malnutrition: NO 5. Chronic liver disease: NO Rheumatoid Arthritis: NO Current Tobacco Use: NO RISK FACTORS HISTORY OF: Hip Fracture (Right/Left): no Spine Fracture: no History of Wrist Fracture: no Surgery to Spine/Hip(right/left)/Wrist (right/left): no Family History of Osteoporosis: no Active: yes Diet low in dairy products/other sources of calcium: yes Postmenopausal woman: yes Take estrogen and/or progesterone medications: no Lost more than 2 inches in height since high school: no Frequent falls: no Poor Health: no Hyperparathyroidism: no Adrenal Insufficiency: no MEDICATIONS: Prednisone or other steroids: no Thyroid Medications: yes Which medication: levothyroxin How Lonyears Osteoporosis Medications: no Additional Medications: BP MEDS X3, METFORMIN, CHOLESTEROL MEDS, ACID REFLUX MEDS, VIT D, ZINC, MAGNE SIUM, TUMERIC, Additional History: EXAM MEASUREMENTS: Bone mineral densitometry was performed using the [employer] System. Bone mineral density as measured about the Lumbar spine is: ----- L1-L4(G/cm2): 1.472 T Score Values are as follows: ----- L1: 2.3 ----- L2: 1.9 ----- L3: 2.6 ----- L4: 2.7 ----- L1-L4: 2.4 Bone mineral density has: INCREASED 11.3 % since study of: 07/05/2011 Bone mineral density about the R hip (g/cm2): 1.263 Bone mineral density about the L hip (g/cm2): 1.271 T Score values are as follows: -----R Neck: 1.6 -----L Neck: 1.7 -----R Total: 2.0 -----L Total: 2.5 Bone mineral density has: DECREASED 6.7 % since study of: 07/05/2011 FRAX%s: The graph provided illustrates a 8.0* chance for a major osteoporotic fx and a 0.1% chance fo r the hips probability for fx in 10 years time. IMPRESSION: Normal (Values between +1 and -1 indicate normal bone mass). Consider repeating this study in 5 year s or sooner if there is some new clinical indication. NOTE: T-SCORE=SD OF THE YOUNG ADULT MEAN.
--- NOTE | 2021-09-03 07:38 | MM ---
Reason for Exam: Screening (asymptomatic). Last mammogram was performed 1 year(s) and 4 month(s) ago. Patient History: Menarche at age 14. First Full-Term at age 29. Postmenopausal. Estrogen for 2 months. Unspecified Hormone for 1 year, 6 months, from age 49 until age 51. Maternal aunt had breast cancer at or over age 50. Risk Values: Laurence 5 year model risk: 1.8%. NCI Lifetime model risk: 7.2%. Prior Study Comparison: 05/08/2018 Right Diagnostic Mammogram, [facility]. 12/06/2018 Right Diagnostic Mammogram, [facility]. 04/30/2020 Bilateral Diagnostic Mammogram, [facility]. Tissue Density: The breast tissue is heterogeneously dense. This may lower the sensitivity of mammography. Findings: Analyzed By CAD. There is no suspicious group of microcalcifications or new suspicious mass in either breast. Overall Assessment: Negative, BI-RAD 1 Management: Screening Mammogram of both breasts in 1 year. A clinical breast exam by your physician is recommended on an annual basis and results should be correlated with mammographic findings. Electronically signed and approved by: Garrick Pearson M.D. Radiologis
== END | disposition home or self-care (01) ==
LOC: RADMAMWWP 15:02
PROVIDERS: ATTEND Obstetrics & Gynecology
DX: Z12.31 Encounter for screening mammogram for malignant neoplasm of breast (principal); Z78.0 Asymptomatic menopausal state; Z80.3 Family history of malignant neoplasm of breast
CPT/HCPCS: 77067; 77080

== ENCOUNTER → 2022-09-21 | Outpatient (CLI) | payer MEDICARE, BC ==
--- NOTE | 2022-09-21 14:45 | CT ---
EXAMINATION TYPE: CT chest wo con CT DLP: 898.3 mGycm, Automated exposure control for dose reduction was used. DATE OF EXAM: 09/21/2022 2:35 PM COMPARISON: Chest radiograph 09/09/2022 CLINICAL INDICATION:Female, 67 years old with history of R05.3; PHH, Chronic cough TECHNIQUE: Multiple thin axial images were obtained through the chest at selected intervals. Prone and supine in spiratory along with supine expiratory images were submitted for review. Please note that due to inte rval acquisition images as defined by high-resolution CT protocol the entire lung parenchyma is not e valuated, therefore small nodular densities may not be visualized. Evaluation of vascular structures , viscera and lymphatics is limited due to lack of intravenous contrast administration. One or more C T dose reduction strategies were utilized during this examination. Total DLP 898.30 mGycm. FINDINGS: LUNGS: There is no evidence of interstitial thickening, significant groundglass opacity, honeycombing or architectural distortion in the lungs. No bronchiectasis. No acute area of infiltrative or consol idative change. Bleb demonstrated within the left lung base LARGE AIRWAYS: Central airways are patent. No dynamic airway collapse on expiratory imaging. PLEURA: No pleural effusion or thickening. HEART AND PERICARDIUM: Heart is normal in size. There is no pericardial effusion. MEDIASTINUM AND RAJINDER: No mediastinal or hilar lymphadenopathy or soft tissue mass. VESSELS: The thoracic aorta is normal in course and caliber. CHEST WALL AND DIAPHRAGM: Normal. LOWER NECK: Normal. UPPER ABDOMEN: Unremarkable. MUSCULOSKELETAL: No acute fracture. IMPRESSION: No evidence for acute thoracic process or interstitial lung disease.
== END | disposition home or self-care (01) ==
LOC: RADCTMAIN 14:12
PROVIDERS: ATTEND Internal Medicine Critical Care Medicine
DX: R05.3 Chronic cough (principal)
CPT/HCPCS: 71250

== ENCOUNTER → 2022-11-01 | Outpatient (CLI) | payer MEDICARE, BC ==
--- NOTE | 2022-11-02 14:29 | MM ---
Reason for Exam: Screening (asymptomatic). Last mammogram was performed 1 year(s) and 2 month(s) ago. Patient History: Menarche at age 14. First Full-Term at age 29. Postmenopausal. Estrogen for 2 months. Unspecified Hormone for 1 year, 6 months, from age 49 until age 51. Maternal aunt had breast cancer at or over age 50. Risk Values: Laurence 5 year model risk: 1.8%. NCI Lifetime model risk: 6.9%. Prior Study Comparison: 12/06/2018 Right Diagnostic Mammogram, [facility]. 04/30/2020 Bilateral Diagnostic Mammogram, [facility]. 09/01/2021 Bilateral MG screening mammo w CAD, [facility]. Tissue Density: There are scattered fibroglandular densities. Findings: Analyzed By CAD. Pattern appears symmetrical and stable. Focal asymmetries in the subareolar left breast, unchanged. Few scattered benign calcifications are present bilaterally. No suspicious groups of microcalcifications, spiculated or lobular masses, architectural distortion or other secondary signs of malignancy are mammographically apparent. Overall Assessment: Benign, BI-RAD 2 Management: Screening Mammogram of both breasts in 1 year. A negative mammogram report should not preclude additional follow up of suspicious palpable abnormalities. Patient should continue monthly self breast exam. A clinical breast exam by your physician is recommended on an annual basis and results should be correlated with mammographic findings. Electronically signed and approved by: Brian Acevedo D.O. Radiologis
== END | disposition home or self-care (01) ==
LOC: RADMAMWWP 09:36
PROVIDERS: ATTEND Obstetrics & Gynecology
DX: Z12.31 Encounter for screening mammogram for malignant neoplasm of breast (principal); Z78.0 Asymptomatic menopausal state; Z80.3 Family history of malignant neoplasm of breast
CPT/HCPCS: 77067

== ENCOUNTER → 2023-01-23 | Day surgery (SDC) | payer MEDICARE, BC ==
[2023-01-19 16:06] VITALS: BMI 32.9
[2023-01-23 09:57] LABS: Glucose,Whole Blood 118 mg/dL (70-110)
[2023-01-23 10:10] VITALS: BP 164/79; PULSE 84; RESP 18; TEMP 98
--- NOTE | 2023-01-24 13:43 | PCN ---
PROCEDURE NOTE REQUESTING PHYSICIAN: Dr. Ames. HISTORY: The patient is a 67-year-old white female scheduled for esophageal manometry as a part of evaluation of chronic cough and occasional dysphagia. PROCEDURE PERFORMED: Esophageal manometry. PREOPERATIVE DIAGNOSIS: Chronic cough. ANESTHESIA: None. DESCRIPTION OF PROCEDURE: After informed consent was obtained from the patient, she was brought to the endoscopy unit. The patient was placed in supine position. The procedure was performed by endoscopy nurse, Mahi. The esophageal manometry catheter was passed from the external nostril and was gently advanced into the esophagus and stomach and the study was performed using liquid and viscous swallow. The study was interpreted using Norman Classification, following are the study results. 1. Lower esophageal sphincter data: Mean IRP 16 mmHg, mean residual pressure is 14 mmHg. 2. Lower esophageal body: Mean DCI is 1638 mmHg.s.cm. Peristaltic contractions today 90%, ineffective contractions 10%. 3. Impedance study: Complete transit with liquids is 90%, complete transit with viscous is 90%. INTERPRETATION: The above esophageal manometry study shows normal lower esophageal sphincter pressures and motility pattern involving the esophageal body is within normal limits. There is no evidence of esophageal dysmotility. MMODL / IJN: [id number] /
== END ==
LOC: ORWHC2ENDO 09:39
PROVIDERS: ATTEND Internal Medicine Gastroenterology
DX: R05.9 Cough, unspecified (principal); R13.10 Dysphagia, unspecified
CPT/HCPCS: 91010

== ENCOUNTER → 2023-05-25 | Outpatient (CLI) | payer MEDICARE, BC ==
--- NOTE | 2023-05-25 08:58 | FL ---
ESOPHOGRAM. HISTORY: Dysphagia Esophagram was performed per the air contrast technique. The patient swallowed barium and effervesce nt crystals without difficulty or delay. Esophageal peristalsis and motility appear to be within normal limits. There is no evidence for filling defect, mass or diverticulum. No hiatal hernia seen. Subsequently single contrast cervical esophagram was performed which fails demonstrate evidence for a spiration penetration or mass. IMPRESSION: Unremarkable study.
== END | disposition home or self-care (01) ==
LOC: RADUSWWP 07:59
DX: K21.00 Gastro-esophageal reflux disease with esophagitis, without bleeding (principal); R13.10 Dysphagia, unspecified
CPT/HCPCS: 74220

== ENCOUNTER → 2024-01-18 | Outpatient (CLI) | payer MEDICARE, BC ==
--- NOTE | 2024-01-18 13:40 | MM ---
Reason for Exam: Screening (asymptomatic). Last mammogram was performed 1 year(s) and 2 month(s) ago. Patient History: Menarche at age 14. First Full-Term at age 29. Postmenopausal. Estrogen for 2 months. Unspecified Hormone for 1 year, 6 months, from age 49 until age 51. Maternal aunt had breast cancer at or over age 50. Risk Values: Laurence 5 year model risk: 1.9%. NCI Lifetime model risk: 6.7%. Prior Study Comparison: 04/30/2020 Bilateral Diagnostic Mammogram, [facility]. 09/01/2021 Bilateral MG screening mammo w CAD, [facility]. 11/01/2022 Bilateral MG screening mammo w CAD, [facility]. Tissue Density: There are scattered areas of fibroglandular density. Findings: Analyzed By CAD. Right breast: There is no suspicious group of microcalcifications or new suspicious mass. Left breast: There is no suspicious group of microcalcifications or new suspicious mass. Overall Assessment: Negative, BI-RAD 1 Management: Screening Mammogram of both breasts in [address] [facility] will attempt to contact patient to return for supplemental views and ultrasound if indicated. Patient should continue monthly self-breast exams. A clinical breast exam by your physician is recommended on an annual basis. This exam should not preclude additional follow-up of suspicious palpable abnormalities. Note on Laurence scores and lifetime risk: 1. A Laurence score greater than 3% is considered moderate risk. If this is the case, consider specialist referral to assess eligibility for a risk reducing agent. 2. If overall lifetime risk for the development of breast cancer is 20% or higher, the patient may qualify for future screening with alternating mammogram and breast MRI. [facility], , 01/18/2024 1:37 PM. Electronically signed and approved by: Micah Fernandez DO
== END | disposition home or self-care (01) ==
LOC: RADMAMWWP 12:55
PROVIDERS: ATTEND Family Medicine
CPT/HCPCS: 77063; 77067